=== PATIENT | female | born 1930 | race Caucasian/White ===

== ENCOUNTER → 2016-12-08 | Outpatient (CLI) | payer MEDICARE, BC ==
[~2016-12-08] MED LIST: ACETAMINOPHEN PO; ALBUTEROL IH; ALBUTEROL17 GM INH; ALBUTEROL17 GM NEB; ASPIRIN PO; ASPIRIN81 M2 PO; BAYER ASPIRIN325 M1 PO; CARVEDILOL6.25 MG PO; DIOVAN PO; DIOVAN160 MG PO; DIOVAN80 M1 PO; DOCUSATE SODIU100 MG PO; FERRO-TIME325 MG PO; FLOVENT HFA12 GM INH; FLOVENT7.9 GM INH; FOLIC ACID1 MG PO; LANOXIN PO; LANOXIN125 MCG PO; LEVAQUIN750 M1 PO; MILK OF MAGNESIA PO; MONTELUKAST SOD10 MG PO; NASACORT AQ16.5 GM; NASACORT10.8 ML; OMEPRAZOLE20 M2 PO; PREVACID PO; PREVACID15 M1 PO; PRILOSEC PO; PRO AIR; PROAIR HFA8.5 GM INH; PROZAC PO; REMERON15 MG PO; SIMVASTATIN10 MG PO; SINGULAIR PO; ZEBETA5 M1 PO; ZEBETA5 MG PO
--- NOTE | ~2016-12-08 | MR17 ---
[facility] A Service of [facility] RADIOLOGY TEXT RESULTS PATIENT: DOC CIFUENTES LOCATION: [facility] : 34 UNIT #: [id number] AGE: [address]: Froy Victoria II, MD SEX: F ORDER DR: [id number] [address] [id number] [id number] O MR#: [id number] Acc #: [id number] NAME: DOC CIFUENTES : 1930 SEX: F STUDY DATE/TIME: 12/08/2016 10:43 UNIT: [facility] ROOM: STUDY DESCRIPTION: MR Brain WWo Contrast Attending Physician: Froy Victoria II., M.D. Referring Physician: Froy Victoria II., M.D. Ordering Physician: Froy Victoria II., M.D. Primary Care Physician: Archana Caballero M.D. MRI CENTER REPORT This report is preliminary unless electronic signature is present. EXAM MRI of the brain with and without contrast dated 12/08/2016 COMPARISON MRI brain without contrast dated 12/15/2014. HISTORY Increased problems with short term memory loss. It is worse in the past year. FINDINGS Multisequence, multiplanar imaging of the brain was obtained with and without contrast. GFR measured 46. 14 mL of MultiHance was administered intravenously. No acute stroke, enhancing intracranial mass, mass effect, midline shift, hemorrhage or hydrocephalus. Few hyperintense T2 nonspecific, nonenhancing lesions are noted in the periventricular white matter, right frontal subcortical white matter and in the right cerebellar hemisphere. There is diffuse parenchymal volume loss. Paranasal sinus and bilateral mastoid mucosal thickening is seen. Status post bilateral cataract surgery. Thick slices through the sella with the pituitary gland, pineal region and upper cervical spine are unremarkable. Suspicious tiny developmental venous anomaly in the right frontal lobe without any coexisting other vascular anomalies. Benign. IMPRESSION 1. Diffuse age-appropriate parenchymal volume loss. 2. Few hyperintense T2-signal lesions are noted in the periventricular white matter, right frontal subcortical white matter, right cerebellar hemisphere suggestive of mild chronic microvascular ischemic change. 3. 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 4. Paranasal sinus and bilateral mastoid mucosal thickening are noted. [facility]. [facility] A Service of [facility] RADIOLOGY TEXT RESULTS PATIENT: DOC CIFUENTES LOCATION: [facility] : 34 UNIT #: [id number] AGE: [address]: Froy Victoria II, MD SEX: F ORDER DR: Correlate with sinusitis and mastoiditis. Dictated by... Ania Crawford M.D. THIS IS AN ELECTRONICALLY VERIFIED REPORT Ania Crawford M.D. at 12/09/2016 3:32 PM CPR/mjs TD: 12/09/2016 08:10 JOB #: [id number] MRI CENTER REPORT
[2016-12-08 11:35] LABS: POC - CREATININE 1.19 mg/dL (0.44-1.03)
== END | disposition home or self-care (01) ==
LOC: SMRI 09:57
PROVIDERS: Psychiatry & Neurology Neurology
DX: R41.3 Other amnesia (principal); J34.89 Other specified disorders of nose and nasal sinuses; R90.89 Other abnormal findings on diagnostic imaging of central nervous system
CPT/HCPCS: 70553; 82565; A9581